=== PATIENT | male | born 1975 | race Caucasian/White ===

== ENCOUNTER 2019-09-11 16:47 | Emergency (ER) | payer MEDICAID ==
[~2019-09-11] VITALS: Ht 200.7 cm; Wt 136.1 kg
[2019-09-11 17:30] VITALS: BP_SYST 142
[2019-09-11] MEDS ORDERED: DIPH-TET-PERTUS Vaccine 0.5 ML VIAL (ADACEL) I.M. ONE (19:15)
[2019-09-11] MEDS: HYDROcodone/ACETAMIN 7.5-325 MG TAB PO ONE (20:41)
[2019-09-11] MEDS: HYDROcodone/ACETAMIN 7.5-325 MG TAB ONE (20:43)
[2019-09-11] MEDS: LIDOCAINE/EPI 2% 1:100000 20 ML VIAL INJ ONE (20:43)
[2019-09-11] MEDS: BACITRACIN 1 GM OINT TP ONE (20:43)
[2019-09-11 21:47] VITALS: BP_SYST 128
== END 2019-09-11 21:47 | disposition home or self-care (01) ==
LOC: SED 16:47
DX: S51.012A Laceration without foreign body of left elbow, initial encounter (principal); Y93.89 Activity, other specified; Y92.89 Other specified places as the place of occurrence of the external cause; Y99.8 Other external cause status; S32.019A Unspecified fracture of first lumbar vertebra, initial encounter for closed fracture; W17.89XA Other fall from one level to another, initial encounter
CPT/HCPCS: 72131; 72192-TC; 90715; 99284

== ENCOUNTER 2024-07-25 07:19 | Inpatient (IN) | payer MEDICAID ==
[~2024-07-25] VITALS: Ht 195.6 cm; Wt 159.2 kg
[2024-07-25] VITALS (7 sets, daily range): BP systolic 129–205; PULSE 71–95; RESP 16–20; TEMP 97–98; O2SAT 94–97
[2024-07-25 08:11] LABS: BASOPHILS # (AUTO) 0.1 K/uL (0.0-0.2); BASOPHILS % (AUTO) 0.8 % (0.0-2.0); EOSINOPHILS # (AUTO) 0.3 K/uL (0.0-0.4); EOSINOPHILS % (AUTO) 3.7 % (0.0-4.0); HEMOGLOBIN 13.7 g/dL (14.0-18.0); LYMPHOCYTES # (AUTO) 1.9 K/uL (1.0-5.5); LYMPHOCYTES % (AUTO) 22.4 % (20.5-51.5); MEAN CORPUSCULAR HEMOGLOBIN 30 pg (27-31); MEAN CORPUSCULAR HGB CONC 34 % (32-36); MEAN CORPUSCULAR VOLUME 88 fL (79.0-98.0); MONOCYTES # (AUTO) 0.6 K/uL (0.0-1.0); MONOCYTES % (AUTO) 7.2 % (1.7-9.3); NEUTROPHILS # (AUTO) 5.5 K/uL (1.8-7.7); NEUTROPHILS % (AUTO) 65.9 % (40.0-70.0); PLATELET COUNT (AUTO) 227 K/uL (130-430); RED BLOOD CELL COUNT(AUTO) 4.65 MIL/uL (4.2-6.2); RED CELL DISTRIBUTION WIDTH 13.4 % (9.0-15.0); WHITE BLOOD COUNT (AUTO) 8.3 K/uL (4.8-10.8)
[2024-07-25 08:22] LABS: CALCIUM 9.1 mg/dL (8.4-11.0); CREATININE 1.27 mg/dL (0.55-1.30); POTASSIUM 3.8 mmol/L (3.5-5.1)
[2024-07-25] MEDS: CEFEPIME 1 GM in D5W 50 ML IV ONE (09:40)
[2024-07-25] MEDS ORDERED: CEFEPIME 1 GM/VIAL (MAXIPIME) ONE (09:42)
[2024-07-25] MEDS: hydrALAZINE HCL 20 MG/ML VIAL IVP ONE (09:44)
[2024-07-25] MEDS ORDERED: BISO10TA29 PO (10:36)
[2024-07-25] MEDS ORDERED: LISI40TA13 PO (10:36)
[2024-07-25] MEDS ORDERED: DOCU250C14 PO (10:36)
[2024-07-25] MEDS ORDERED: CLON0.2T PO (10:36)
[2024-07-25] MEDS ORDERED: FURO40TA5 PO (10:36)
[2024-07-25] MEDS ORDERED: GABA-529 PO (10:36)
[2024-07-25] MEDS ORDERED: SPIR100T5 PO (10:36)
[2024-07-25] MEDS ORDERED: IBUP-1619 PO (10:36)
[2024-07-25] MEDS ORDERED: VANCOMYCIN HCL 1000 MG/VIAL IV ONE (10:37)
[2024-07-25] MEDS: VANCOMYCIN HCL 1,000 MG in NS 250 ML IV ONE (10:37)
[2024-07-25] MEDS: hydrALAZINE HCL 25 MG TABLET PO PRN (16:26)
[2024-07-25] MEDS ORDERED: ONDANSETRON HCL 4 MG/2 ML VIAL IVP PRN (23:00)
[2024-07-25] MEDS ORDERED: HYDROcodone/ACETAMIN 5-325 MG TAB (NORCO/ VICODIN) PO PRN (23:00)
[2024-07-25] MEDS ORDERED: ACETAMINOPHEN 325 MG TABLET PO PRN (23:00)
[2024-07-25] MEDS ORDERED: NALOXONE HCL 0.4 MG/ML AMP (NARCAN) IVP PRN ×2 (23:00)
[2024-07-25] MEDS ORDERED: LORazepam 2 MG/ML VIAL IVP PRN (23:00)
[2024-07-26] VITALS (8 sets, daily range): BP systolic 130–165; PULSE 69–79; RESP 16–18; TEMP 97.6–98.4; O2SAT 94–98
[2024-07-26] MEDS: NORMAL SALINE 5 ML DISP.SYRIN IVF SCH (06:53)
[2024-07-26 07:11] LABS: BASOPHILS % (AUTO) 0.7 % (0.0-2.0); EOSINOPHILS # (AUTO) 0.4 K/uL (0.0-0.4); EOSINOPHILS % (AUTO) 6.1 % (0.0-4.0); HEMATOCRIT 39.4 % (36-54); LYMPHOCYTES % (AUTO) 28.5 % (20.5-51.5); MEAN CORPUSCULAR HEMOGLOBIN 29 pg (27-31); MEAN CORPUSCULAR HGB CONC 33 % (32-36); MEAN CORPUSCULAR VOLUME 88 fL (79.0-98.0); MONOCYTES # (AUTO) 0.6 K/uL (0.0-1.0); MONOCYTES % (AUTO) 8.6 % (1.7-9.3); NEUTROPHILS # (AUTO) 3.8 K/uL (1.8-7.7); NEUTROPHILS % (AUTO) 56.1 % (40.0-70.0); PLATELET COUNT (AUTO) 209 K/uL (130-430); RED CELL DISTRIBUTION WIDTH 13.4 % (9.0-15.0); WHITE BLOOD COUNT (AUTO) 6.9 K/uL (4.8-10.8)
[2024-07-26 07:31] LABS: ALBUMIN 3.3 g/dL (3.4-4.8); CALCIUM 8.8 mg/dL (8.4-11.0); CREATININE 1.08 mg/dL (0.55-1.30); PHOSPHORUS 3.8 mg/dL (2.7-4.5); POTASSIUM 4.2 mmol/L (3.5-5.1); TOTAL BILIRUBIN 0.5 mg/dL (0.0-1.0); TOTAL PROTEIN, SERUM 6.6 g/dL (6.4-8.3)
[2024-07-26] MEDS: GABAPENTIN 100 MG CAPSULE PO SCH (09:03)
[2024-07-26] MEDS: IBUPROFEN 800 MG TABLET PO SCH (09:04)
[2024-07-26] MEDS: cloNIDine HCL 0.2 MG TABLET PO SCH (09:04)
[2024-07-26] MEDS: HYDROcodone/ACETAMIN 10-325 MG TAB PO PRN (09:04)
[2024-07-26] MEDS: SPIRONOLACTONE 50 MG TABLET (ALDACTONE) PO SCH (09:05)
[2024-07-26] MEDS: FUROSEMIDE 40 MG TABLET PO SCH (09:05)
[2024-07-26] MEDS: DOCUSATE SODIUM 250 MG CAPSULE PO SCH (09:07)
[2024-07-26] MEDS: CEFEPIME 1 GM in D5W 50 ML IV SCH (09:15)
[2024-07-26] MEDS: lisinopriL 20 MG TABLET PO SCH (20:21)
[2024-07-27 00:09] VITALS: BP_SYST 147; PULSE 94; RESP 18; TEMP 97.1; O2SAT 97
[2024-07-27 06:56] LABS: BASOPHILS # (AUTO) 0.1 K/uL (0.0-0.2); BASOPHILS % (AUTO) 1.1 % (0.0-2.0); EOSINOPHILS # (AUTO) 0.4 K/uL (0.0-0.4); EOSINOPHILS % (AUTO) 6.7 % (0.0-4.0); HEMATOCRIT 38.8 % (36-54); HEMOGLOBIN 13.1 g/dL (14.0-18.0); LYMPHOCYTES % (AUTO) 31.6 % (20.5-51.5); MEAN CORPUSCULAR HEMOGLOBIN 30 pg (27-31); MEAN CORPUSCULAR HGB CONC 34 % (32-36); MEAN CORPUSCULAR VOLUME 88 fL (79.0-98.0); MONOCYTES # (AUTO) 0.6 K/uL (0.0-1.0); MONOCYTES % (AUTO) 8.8 % (1.7-9.3); NEUTROPHILS # (AUTO) 3.4 K/uL (1.8-7.7); NEUTROPHILS % (AUTO) 51.8 % (40.0-70.0); PLATELET COUNT (AUTO) 212 K/uL (130-430); RED BLOOD CELL COUNT(AUTO) 4.42 MIL/uL (4.2-6.2); RED CELL DISTRIBUTION WIDTH 13.3 % (9.0-15.0); WHITE BLOOD COUNT (AUTO) 6.5 K/uL (4.8-10.8)
[2024-07-27 07:16] LABS: ERYTHROCYTE SEDIMENTATION RATE 10 MM/HR (0-15)
[2024-07-27 07:22] LABS: CALCIUM 8.8 mg/dL (8.4-11.0); CREATININE 1.15 mg/dL (0.55-1.30); POTASSIUM 3.9 mmol/L (3.5-5.1)
[2024-07-27 08:00] VITALS: BP_SYST 169; PULSE 70; RESP 16; TEMP 97.7
[2024-07-27 12:23] VITALS: BP_SYST 162; PULSE 65; RESP 18; TEMP 98.7; O2SAT 92
[2024-07-27 16:02] VITALS: BP_SYST 167; PULSE 78; RESP 18; TEMP 98.4; O2SAT 94
[2024-07-27 20:00] VITALS: BP_SYST 190; PULSE 82; RESP 18; TEMP 98.1
[2024-07-28] MEDS ORDERED: CLIN-142 PO (10:20)
[2024-07-28] MEDS ORDERED: SULF1TAB48 PO (11:43)
== END 2024-07-27 22:00 | disposition left against medical advice (07) | DRG 351 ==
LOC: SED 07:19 → SMU 11:49
PROVIDERS: ADMIT Preventive Medicine Preventive Medicine/Occupational Environmental Medicine; ATTEND Preventive Medicine Preventive Medicine/Occupational Environmental Medicine
DX: M10.9 Gout, unspecified (principal); E44.1 Mild protein-calorie malnutrition; L03.116 Cellulitis of left lower limb; D64.9 Anemia, unspecified; G62.9 Polyneuropathy, unspecified; I10 Essential (primary) hypertension; Z20.822 Contact with and (suspected) exposure to COVID-19; Z53.29 Procedure and treatment not carried out because of patient's decision for other reasons; K59.00 Constipation, unspecified; R73.9 Hyperglycemia, unspecified; E66.01 Morbid (severe) obesity due to excess calories; Z68.41 Body mass index [BMI] 40.0-44.9, adult
CPT/HCPCS: 36415; 80048; 80053; 83605; 83735; 84100; 85025; 85651; 87040; 93005; 96365; 99285; J0360; J0692; J3370; J7050; J7060

== ENCOUNTER 2024-07-28 09:10 | Emergency (ER) | payer MEDICAID ==
[~2024-07-28] VITALS: Ht 200.7 cm; Wt 158.8 kg
[~2024-07-28 09:10] MED LIST: BISO10TA29 PO; CLON0.2T PO; DOCU250C14 PO; FURO40TA5 PO; GABA-529 PO; IBUP-1619 PO; LISI40TA13 PO; SPIR100T5 PO
[2024-07-28 09:19] VITALS: BP_SYST 148; PULSE 83; RESP 20; TEMP 98.3; O2SAT 98
[2024-07-28] MEDS ORDERED: VANCOMYCIN HCL 1000 MG/VIAL IV ONE (09:46)
[2024-07-28] MEDS: VANCOMYCIN HCL 1,000 MG in NS 250 ML IV ONE (09:51)
[2024-07-28 09:58] LABS: BASOPHILS # (AUTO) 0.1 K/uL (0.0-0.2); BASOPHILS % (AUTO) 0.9 % (0.0-2.0); EOSINOPHILS # (AUTO) 0.3 K/uL (0.0-0.4); EOSINOPHILS % (AUTO) 4.1 % (0.0-4.0); HEMATOCRIT 40.7 % (36-54); HEMOGLOBIN 13.6 g/dL (14.0-18.0); LYMPHOCYTES # (AUTO) 1.3 K/uL (1.0-5.5); LYMPHOCYTES % (AUTO) 19.6 % (20.5-51.5); MEAN CORPUSCULAR HEMOGLOBIN 29 pg (27-31); MEAN CORPUSCULAR HGB CONC 34 % (32-36); MEAN CORPUSCULAR VOLUME 88 fL (79.0-98.0); MONOCYTES # (AUTO) 0.4 K/uL (0.0-1.0); MONOCYTES % (AUTO) 6.5 % (1.7-9.3); NEUTROPHILS # (AUTO) 4.7 K/uL (1.8-7.7); NEUTROPHILS % (AUTO) 68.9 % (40.0-70.0); PLATELET COUNT (AUTO) 230 K/uL (130-430); RED BLOOD CELL COUNT(AUTO) 4.63 MIL/uL (4.2-6.2); RED CELL DISTRIBUTION WIDTH 13.1 % (9.0-15.0); WHITE BLOOD COUNT (AUTO) 6.8 K/uL (4.8-10.8)
[2024-07-28 10:15] LABS: CALCIUM 8.7 mg/dL (8.4-11.0); CREATININE 1.39 mg/dL (0.55-1.30); POTASSIUM 4.2 mmol/L (3.5-5.1)
[2024-07-28] MEDS ORDERED: CLIN-142 PO (10:20)
[2024-07-28 11:40] VITALS: BP_SYST 125; PULSE 63; RESP 14; TEMP 98.2; O2SAT 93
[2024-07-28] MEDS ORDERED: SULF1TAB48 PO (11:43)
== END 2024-07-28 11:40 | disposition home or self-care (01) ==
LOC: SED 09:10
DX: L97.528 Non-pressure chronic ulcer of other part of left foot with other specified severity (principal); I10 Essential (primary) hypertension; Z79.899 Other long term (current) drug therapy; Z79.2 Long term (current) use of antibiotics; Z88.8 Allergy status to other drugs, medicaments and biological substances
CPT/HCPCS: 99284; 96365; 96366; 80048; 85025; 36415; 83605; 82397; J3370

== ENCOUNTER 2024-08-02 05:37 | Inpatient (IN) | payer MEDICAID ==
[~2024-08-02] VITALS: Ht 200.7 cm; Wt 145.1 kg
[~2024-08-02 05:37] MED LIST changes: +CLIN-142 PO; +SULF1TAB48 PO
[2024-08-02 05:46] VITALS: BP_SYST 158; PULSE 77; RESP 16; TEMP 97.6; O2SAT 94
[2024-08-02 06:44] LABS: BASOPHILS % (AUTO) 0.7 % (0.0-2.0); EOSINOPHILS # (AUTO) 0.3 K/uL (0.0-0.4); EOSINOPHILS % (AUTO) 5.5 % (0.0-4.0); HEMOGLOBIN 12.5 g/dL (14.0-18.0); LYMPHOCYTES # (AUTO) 1.7 K/uL (1.0-5.5); LYMPHOCYTES % (AUTO) 30.9 % (20.5-51.5); MEAN CORPUSCULAR HEMOGLOBIN 30 pg (27-31); MEAN CORPUSCULAR HGB CONC 34 % (32-36); MEAN CORPUSCULAR VOLUME 88 fL (79.0-98.0); MONOCYTES # (AUTO) 0.5 K/uL (0.0-1.0); MONOCYTES % (AUTO) 8.5 % (1.7-9.3); NEUTROPHILS # (AUTO) 2.9 K/uL (1.8-7.7); NEUTROPHILS % (AUTO) 54.4 % (40.0-70.0); PLATELET COUNT (AUTO) 204 K/uL (130-430); RED CELL DISTRIBUTION WIDTH 13.4 % (9.0-15.0); WHITE BLOOD COUNT (AUTO) 5.4 K/uL (4.8-10.8)
[2024-08-02 06:55] LABS: CREATININE 1.32 mg/dL (0.55-1.30); POTASSIUM 4.4 mmol/L (3.5-5.1)
[2024-08-02] MEDS: VANCOMYCIN HCL 1,500 MG in NS 250 ML IV SCH (06:56)
[2024-08-02] MEDS: NACL 0.9% 1,000 ML IV ONE (08:29)
[2024-08-02] MEDS ORDERED: HYDR100T13 PO (10:26)
[2024-08-02] MEDS ORDERED: NALOXONE HCL 0.4 MG/ML AMP (NARCAN) IVP PRN ×2 (11:15)
[2024-08-02] MEDS ORDERED: HYDROcodone/ACETAMIN 5-325 MG TAB (NORCO/ VICODIN) PO PRN (11:15)
[2024-08-02] MEDS ORDERED: ONDANSETRON HCL 4 MG/2 ML VIAL IVP PRN (11:15)
[2024-08-02] MEDS ORDERED: ACETAMINOPHEN 325 MG TABLET PO PRN ×2 (11:15→12:15)
[2024-08-02] MEDS: hydrALAZINE HCL 25 MG TABLET PO ONE (11:45)
[2024-08-02] MEDS: SPIRONOLACTONE 50 MG TABLET (ALDACTONE) PO ONE (11:50)
[2024-08-02] MEDS: NACL 0.9% 1,000 ML IV SCH (12:15)
[2024-08-02] MEDS: FUROSEMIDE 40 MG TABLET PO ONE (12:24)
[2024-08-02] MEDS ORDERED: FUROSEMIDE 20 MG TABLET ONE (12:26)
[2024-08-02] MEDS: cloNIDine HCL 0.2 MG TABLET PO ONE (12:43)
[2024-08-02] MEDS: HYDROcodone/ACETAMIN 10-325 MG TAB PO PRN (12:46)
[2024-08-02] MEDS ORDERED: cloNIDine HCL 0.1 MG TABLET ONE (12:46)
[2024-08-02] MEDS ORDERED: SPIRONOLACTONE 25 MG TABLET (ALDACTONE) ONE (13:35)
[2024-08-02 14:51] VITALS: BP_SYST 159; PULSE 77; RESP 17; TEMP 98.1; O2SAT 98
[2024-08-02] MEDS: ceFAZolin SODIUM 2 GM in D5W 100 ML IV SCH (18:24)
[2024-08-02 20:00] VITALS: BP_SYST 144; PULSE 74; RESP 16; TEMP 97.4; O2SAT 99
[2024-08-02] MEDS: GABAPENTIN 300 MG CAPSULE PO SCH (20:57)
[2024-08-02] MEDS: hydrALAZINE HCL 25 MG TABLET PO SCH (20:57)
[2024-08-02] MEDS: cloNIDine HCL 0.2 MG TABLET PO SCH (20:58)
[2024-08-02] MEDS: FUROSEMIDE 40 MG TABLET PO SCH (20:58)
[2024-08-02] MEDS: CLINDAMYCIN 600 MG in D5W 50 ML IV SCH (23:28)
[2024-08-03] VITALS: BP_SYST 150; PULSE 76; RESP 16; TEMP 98.2; O2SAT 98
[2024-08-03 07:18] LABS: CALCIUM 8.6 mg/dL (8.4-11.0); CREATININE 1.26 mg/dL (0.55-1.30)
[2024-08-03 07:22] LABS: BASOPHILS # (AUTO) 0.1 K/uL (0.0-0.2); EOSINOPHILS # (AUTO) 0.4 K/uL (0.0-0.4); EOSINOPHILS % (AUTO) 6.3 % (0.0-4.0); HEMATOCRIT 38.1 % (36-54); HEMOGLOBIN 12.7 g/dL (14.0-18.0); LYMPHOCYTES # (AUTO) 1.9 K/uL (1.0-5.5); LYMPHOCYTES % (AUTO) 28.5 % (20.5-51.5); MEAN CORPUSCULAR HEMOGLOBIN 29 pg (27-31); MEAN CORPUSCULAR HGB CONC 33 % (32-36); MEAN CORPUSCULAR VOLUME 88 fL (79.0-98.0); MONOCYTES # (AUTO) 0.5 K/uL (0.0-1.0); MONOCYTES % (AUTO) 7.9 % (1.7-9.3); NEUTROPHILS # (AUTO) 3.7 K/uL (1.8-7.7); NEUTROPHILS % (AUTO) 56.3 % (40.0-70.0); PLATELET COUNT (AUTO) 217 K/uL (130-430); RED BLOOD CELL COUNT(AUTO) 4.33 MIL/uL (4.2-6.2); RED CELL DISTRIBUTION WIDTH 13.4 % (9.0-15.0); WHITE BLOOD COUNT (AUTO) 6.6 K/uL (4.8-10.8)
[2024-08-03 08:00] VITALS: BP_SYST 154; PULSE 77; RESP 16; TEMP 98.4; O2SAT 98
[2024-08-03] MEDS: DOCUSATE SODIUM 250 MG CAPSULE PO SCH (08:35)
[2024-08-03] MEDS: SPIRONOLACTONE 50 MG TABLET (ALDACTONE) PO SCH (08:36)
[2024-08-03 14:33] VITALS: BP_SYST 141; PULSE 70; RESP 19; TEMP 97.8; O2SAT 96
[2024-08-03] MEDS: NORMAL SALINE 5 ML DISP.SYRIN IVF SCH (15:03)
[2024-08-03 16:39] LABS: BARBITURATE, URINE NEGATIVE (NEG <=200); BENZODIAZEPINE, URINE NEGATIVE (NEG <=150); CANNABINOID, URINE NEGATIVE (NEG <=50); COCAINE, URINE NEGATIVE (NEG <=150); METHAMPHETAMINES SCREEN,URINE NEGATIVE (NEG <=500); OPIATE, URINE NEGATIVE (NEG <=100); PHENCYCLIDINE SCREEN,URINE NEGATIVE (NEG <=25); URINE AMPHETAMINE NEGATIVE (NEG <=500); URINE METHADONE NEGATIVE (NEG <=200); URINE OXYCODONE SCREEN NEGATIVE (NEG <=100)
[2024-08-03 16:42] LABS: UR TRICYCLIC ANTIDEPRESSANTS NEGATIVE (NEG <=300)
[2024-08-03 17:17] VITALS: BP_SYST 146; PULSE 78; RESP 19; TEMP 97.7; O2SAT 95
[2024-08-03 20:00] VITALS: BP_SYST 152; PULSE 86; RESP 16; TEMP 97.7; O2SAT 96
[2024-08-04] VITALS (7 sets, daily range): BP systolic 142–161; PULSE 67–88; RESP 16–20; TEMP 96.8–98.4; O2SAT 94–99
[2024-08-04 06:24] LABS: BASOPHILS # (AUTO) 0.1 K/uL (0.0-0.2); BASOPHILS % (AUTO) 1.1 % (0.0-2.0); EOSINOPHILS # (AUTO) 0.5 K/uL (0.0-0.4); EOSINOPHILS % (AUTO) 8.6 % (0.0-4.0); HEMATOCRIT 38.5 % (36-54); LYMPHOCYTES % (AUTO) 31.7 % (20.5-51.5); MEAN CORPUSCULAR HEMOGLOBIN 30 pg (27-31); MEAN CORPUSCULAR HGB CONC 34 % (32-36); MEAN CORPUSCULAR VOLUME 88 fL (79.0-98.0); MONOCYTES # (AUTO) 0.6 K/uL (0.0-1.0); MONOCYTES % (AUTO) 10.1 % (1.7-9.3); NEUTROPHILS % (AUTO) 48.5 % (40.0-70.0); PLATELET COUNT (AUTO) 219 K/uL (130-430); RED BLOOD CELL COUNT(AUTO) 4.37 MIL/uL (4.2-6.2); RED CELL DISTRIBUTION WIDTH 13.2 % (9.0-15.0); WHITE BLOOD COUNT (AUTO) 6.3 K/uL (4.8-10.8)
[2024-08-04 06:43] LABS: ERYTHROCYTE SEDIMENTATION RATE 12 MM/HR (0-15)
[2024-08-04 06:53] LABS: ALBUMIN 3.2 g/dL (3.4-4.8); CALCIUM 8.7 mg/dL (8.4-11.0); CREATININE 1.1 mg/dL (0.55-1.30); POTASSIUM 3.9 mmol/L (3.5-5.1); TOTAL BILIRUBIN 0.5 mg/dL (0.0-1.0); TOTAL PROTEIN, SERUM 6.6 g/dL (6.4-8.3)
[2024-08-04] MEDS: LORazepam 2 MG/ML VIAL IVP PRN (21:24)
[2024-08-05 06:12] LABS: BASOPHILS # (AUTO) 0.1 K/uL (0.0-0.2); BASOPHILS % (AUTO) 0.7 % (0.0-2.0); EOSINOPHILS # (AUTO) 0.4 K/uL (0.0-0.4); EOSINOPHILS % (AUTO) 5.8 % (0.0-4.0); HEMATOCRIT 40.4 % (36-54); HEMOGLOBIN 13.6 g/dL (14.0-18.0); LYMPHOCYTES % (AUTO) 26.3 % (20.5-51.5); MEAN CORPUSCULAR HEMOGLOBIN 29 pg (27-31); MEAN CORPUSCULAR HGB CONC 34 % (32-36); MEAN CORPUSCULAR VOLUME 88 fL (79.0-98.0); MONOCYTES # (AUTO) 0.6 K/uL (0.0-1.0); MONOCYTES % (AUTO) 7.5 % (1.7-9.3); NEUTROPHILS # (AUTO) 4.6 K/uL (1.8-7.7); NEUTROPHILS % (AUTO) 59.7 % (40.0-70.0); PLATELET COUNT (AUTO) 240 K/uL (130-430); RED BLOOD CELL COUNT(AUTO) 4.62 MIL/uL (4.2-6.2); RED CELL DISTRIBUTION WIDTH 13.2 % (9.0-15.0); WHITE BLOOD COUNT (AUTO) 7.8 K/uL (4.8-10.8)
[2024-08-05 06:48] LABS: ERYTHROCYTE SEDIMENTATION RATE 16 MM/HR (0-15)
[2024-08-05 06:50] LABS: CREATININE 1.09 mg/dL (0.55-1.30); PHOSPHORUS 3.9 mg/dL (2.7-4.5); POTASSIUM 3.6 mmol/L (3.5-5.1)
[2024-08-05 08:00] VITALS: BP_SYST 151; PULSE 73; RESP 19; TEMP 97.6; O2SAT 95
[2024-08-05 10:00] VITALS: O2SAT 95
[2024-08-05 11:28] VITALS: BP_SYST 167; PULSE 81; RESP 20; TEMP 98.4; O2SAT 95
[2024-08-05] MEDS ORDERED: HYDR-3927 PO (15:42)
[2024-08-05] MEDS ORDERED: CEPH250C PO (15:42)
[2024-08-05] MEDS ORDERED: HYDR-3919 PO (15:42)
[2024-08-05 16:10] VITALS: BP_SYST 153; PULSE 78; RESP 20; TEMP 98.6; O2SAT 95
[2024-08-05 16:27] VITALS: BP_SYST 149; PULSE 78; RESP 18; TEMP 98.6; O2SAT 95
== END 2024-08-05 16:45 | disposition home or self-care (01) | DRG 383 ==
LOC: SED 05:37 → SMU 08:54 → STU 08-03 00:01 → SMU 08-04 10:07
PROVIDERS: ADMIT Preventive Medicine Preventive Medicine/Occupational Environmental Medicine; ATTEND Preventive Medicine Preventive Medicine/Occupational Environmental Medicine
DX: L03.116 Cellulitis of left lower limb (principal); N17.9 Acute kidney failure, unspecified; E11.22 Type 2 diabetes mellitus with diabetic chronic kidney disease; E11.40 Type 2 diabetes mellitus with diabetic neuropathy, unspecified; E88.09 Other disorders of plasma-protein metabolism, not elsewhere classified; D64.9 Anemia, unspecified; E11.65 Type 2 diabetes mellitus with hyperglycemia; I12.9 Hypertensive chronic kidney disease with stage 1 through stage 4 chronic kidney disease, or unspecified chronic kidney disease; E66.9 Obesity, unspecified; N18.9 Chronic kidney disease, unspecified; I87.8 Other specified disorders of veins; Z79.899 Other long term (current) drug therapy; Z88.8 Allergy status to other drugs, medicaments and biological substances; Z68.41 Body mass index [BMI] 40.0-44.9, adult
CPT/HCPCS: 36415; 73700-TC; 80048; 80053; 80307; 82570; 83037; 83735; 84100; 85025; 85651; 87040; 87081; 99285; G0378; J2060; J3370; J3490; J7030; J7050; J7060